=== PATIENT | female | born 1935 | race Caucasian/White ===

== ENCOUNTER 2019-07-08 21:13 | Inpatient (IN) ==
[2019-07-08] MEDS ORDERED: ONDANSETRON INJ 2 MG/ML 2 ML VIAL IV PRN (23:47)
[2019-07-08] MEDS ORDERED: MoRPHine SULFATE 2 MG/ML CARP IV PRN (23:47)
[2019-07-08] MEDS ORDERED: ACETAMINOPHEN 325 MG TAB PO PRN (23:47)
[2019-07-08] MEDS ORDERED: ALBUTEROL HFA 8 GM INHALER INH PRN (23:47)
[2019-07-09] MEDS ORDERED: cefTRIAXone SODIUM 1,000 MG in DEXTROSE 5% 50 ML IV SCH
[2019-07-09] MEDS: SODIUM CHLORIDE 0.9% 1000ML 1,000 ML IV SCH ×2 (00:50→09:48)
--- NOTE | 2019-07-09 02:51 | History and Physical Report ---
DATE OF ADMISSION: 07/08/2019 CHIEF COMPLAINT: Abdominal pain. HISTORY OF PRESENT ILLNESS: This is an 83-year-old female with past medical history significant for COPD, hyperlipidemia, hypertension, history of colovesical fistula, history of swallowing disorder, constipation, GERD, hydronephrosis of left kidney, ureteral stricture left side, status post stents, amputated toes, pressure ulcer of sacral region stage I, low back pain, anemia, history of septic shock, psoriasis, history of cervical cancer, status post colostomy, history of hip fracture, history of nontraumatic retroperitoneal hematoma,Hxof PE not on anticoagulation? currently who went to [facility] with abdominal pain. She has chronic recurrent UTIs and chronic left hydronephrosis with left ureteral stricture and she is status post stent. She changes her stent every 3 months, last time it was changed in April. CAT scan from 11/2018 showed mild right hydroureteronephrosis without stones and stricture and urology is observing her about that.Today she went to [facility] with abdominal pain and nausea. UA was positive. No leukocytosis. Creatinine was 0.9, but because of abdominal tenderness, CAT scan of the abdomen and pelvis was done which showed multiple loops of dilated ileum, which measures up to 4.2 cm without evidence of interloop fluid. Findings may relate to developing ileus. Strictures from post-treatment changes are also possible. Closed loop obstruction is also possible, but does not appear to have characteristic imaging findings. Increased dilatation of the right renal collecting system from prior study with enhancement of the ureter. Findings may relate to infection with post treatment stricture and resulting hydronephrosis, normal position of left double-J ureteral stent. On the right side, there is narrowing of of distal ureter, findings may related to stricture. The patient's urologist at [place] who she sees regularly is out of station, so she was transferred here for further management. Her left kidney has atrophied. Currently, the patient says abdominal pain is better. Nausea has improved. Somewhat shaky. She lives with her daughter. She is ambulating with a walker. She says she has difficulty swallowing food and she has to eat a few bites at a time. Not great appetite. She has some headaches because of all these things happening today. Vision is not that great. No earaches, no runny nose. Throat is dry. She also does have cough from her sinuses and brings up some phlegm once in a while. She says she has arthritis. Denies any chest pain. No shortness of breath. Currently, no nausea, no diarrhea or constipation. She says her bowels moved but they move irregularly. She says she is status post colostomy and says she does not remember why she had colostomy; it was done a long time back. She says she is micturating fine. No burning micturition. No blood in the urine. No rash seen. Currently resting comfortably and hemodynamically stable. ALLERGIES: No known drug allergies. PAST MEDICAL HISTORY: As mentioned above. PAST SURGICAL HISTORY: Right knee arthroplasty, colonoscopy, multiple cystoscopies with stent placement, cystoscopy, EGDs, exploratory laparotomy, femur fracture repair, flexible sigmoidoscopy, removal of appendix, total abdominal hysterectomy with removal of tubes. MEDICATIONS: The patient is on albuterol 2 puffs every 4 hours p.r.n., Klor-Con 10 mEq p.o. daily, potassium and sodium phosphate 1 packet daily, Lasix 20 mg p.o. daily, Coreg 3.125 mg b.i.d., oxybutynin 10 mg daily, ferrous sulfate 5 mL b.i.d., melatonin 3 mg p.o. every night, alendronate 70 mg once weekly, Remeron 15 mg p.o. at bedtime, omeprazole 20 mg p.o. daily, simvastatin 20 mg p.o. at bedtime, Tylenol 650 mg p.o. q. 6 hours p.r.n., Colace 100 mg p.o. b.i.d., folic acid 1 mg p.o. daily. FAMILY HISTORY: Significant for sister who had cancer, mother had breast cancer, sister has throat cancer. SOCIAL HISTORY: Lives with her daughter. No smoking, no alcohol, no drug use. REVIEW OF SYSTEMS: As per HPI. Rest of the review of systems negative. PHYSICAL EXAMINATION: GENERAL: The patient is old and frail, not in acute distress. VITAL SIGNS: Temperature 36.7, pulse 77, respiratory rate 18, blood pressure 143/86, oxygen 97% on room air. HEENT: No pallor, no icterus. NECK: No JVD, no neck masses, no carotid bruit. CARDIOVASCULAR: S1, S2 heard, regular rate and rhythm, no murmur, no gallop. RESPIRATORY SYSTEM: Normal AP diameter. No accessory muscle use. No wheezing, no crackles. ABDOMEN: Soft, bowel sounds present. Mild diffuse tenderness. Mild guarding, mild distention. CENTRAL NERVOUS SYSTEM: Alert and oriented. Nonfocal. EXTREMITIES: Mild edema seen, no erythema. SKIN: Scabs seen in the left lower foot. LABORATORY DATA: From [facility], WBC 6.8, hemoglobin 11.6, hematocrit 38.1, platelets 245, BUN 16, creatinine 0.9, serum sodium 141, potassium 4.5, chloride 104, bicarbonate 26, glucose 114, calcium 9.1, alkaline phosphatase of 61, ALT 6, AST 18, total bilirubin 0.3, lipase 21. Urinalysis positive for nitrite and leukocyte esterase and bacteria.CT scan results as above. ASSESSMENT AND PLAN: This is an 83-year-old female who presents with abdominal pain and found to have urinary tract infection and also right ureteral stricture. 1. Abdominal pain. The patient has history of recurrent urinary tract infections and left ureteral stricture and left hydronephrosis, and she had stent placement and gets changed every 3 months. Last time it was done in April, now CAT scan is showing also right hydronephrosis with right distal ureteral stricture. In November, CAT scan also showed some right hydronephrosis, but stricture was not shown. Her left kidney is atrophied, but kidney function is okay at 0.9. The patient was transferred from [place] here because her regular urologist is out of town. We will keep her n.p.o., IV fluids, IV pain meds p.r.n., IV Zofran p.r.n. Consulted and notified urology to be seen in the am. 2. Urinary tract infection. The patient was placed on Rocephin in [facility]. Will continue Rocephin.Follow cultures. 3. Ileus on the CAT scan. We will keep her n.p.o. IV fluids, IV antiemetics, IV pain meds p.r.n. Follow KUB in the a.m. Consult general surgery in the a.m. History of colostomy. 4. History of deep venous thrombosis, pulmonary embolism, but no longer on anticoagulation. 5. history of nontraumatic retroperitoneal hematoma. 6. History of cervical cancer. 7. Pressure ulcer of sacral area, stage I. Consult wound care. 8. Gastroesophageal reflux disease, omeprazole. 9. Hypertension, Coreg.Will monitor 10. Chronic obstructive pulmonary disease, on home inhalers. 11. Deep venous thrombosis prophylaxis, sequential compression devices for now. 12. Disposition: Admit to medical floor. Expect to discharge home and follow with family doctor. PT and OT prior to discharge. Social Service to help with discharge planning. Level 1 full code as per my discussion with the patient. MTDD
[2019-07-09 05:49] LABS: Basophils # (auto) 0.03 K/uL (0-0.2); Basophils % (auto) 0.4 %; Eosinophils % (auto) 14.7 %; Hematocrit (blood only) 36.7 % (37-47); Hemoglobin 11.7 g/dL (12.0-16.0); Immature Granulocytes # (auto) 0.01 K/uL (0.00-0.02); Immature Granulocytes % (auto) 0.1 %; Lymphocytes % (auto) 23.5 %; Mean Corpuscular Hemoglobin 30.5 pg (25-34); Mean Corpuscular Hgb Conc 31.9 g/dL (32-36); Mean Corpuscular Volume 95.6 fL (80-100); Mean Platelet Volume 9.7 fL (7.4-10.4); Monocytes % (auto) 8.8 %; Neutrophils # (auto) 3.58 K/uL (1.4-6.5); Neutrophils % (auto) 52.5 %; Platelet Count 196 K/uL (130-400); RDW Coefficient of Variation 14.3 % (11.5-14.5); RDW Standard Deviation 49.6 fL (36.4-46.3); Red Blood Count 3.84 M/uL (4.2-5.4); White Blood Count 6.82 K/uL (4.8-10.8)
[2019-07-09 06:06] LABS: Alanine Aminotransferase 9 U/L (12-78); Albumin Level 2.4 gm/dl (3.4-5.0); Aspartate Aminotransferase 14 U/L (15-37); BUN Creatinine Ratio 15.3 (10-20); Bilirubin Direct < 0.1 mg/dl (0-0.2); Blood Urea Nitrogen 12 mg/dl (7-18); Calcium 8.2 mg/dl (8.5-10.1); Carbon Dioxide 27 mmol/L (21-32); Chloride 112 mmol/L (98-107); Creatinine Clr Calc Pharmacy 48.3 ml/min; Est GFR (African American) 83.3; Est GFR (Non-African American) 71.9; Glucose 80 mg/dl (70-99); Magnesium 1.8 mg/dl (1.8-2.4); Potassium 3.8 mmol/L (3.5-5.1); Sodium 141 mmol/L (136-145)
[2019-07-09 06:09] LABS: Alkaline Phosphatase 63 U/L (45-117); Bilirubin,Total 0.3 mg/dl (0.2-1); Partial Thromboplastin Ratio 0.9; Partial Thromboplastin Time 23.6 Seconds (21.0-31.0); Prothrombin Time 10.3 Seconds (9.0-12.0); Total Protein 6.3 gm/dl (6.4-8.2)
[2019-07-09] MEDS ORDERED: POTASSIUM CHLORIDE 10 MEQ TABCR PO SCH (09:00)
[2019-07-09] MEDS: DOCUSATE SODIUM 100 MG CAP PO SCH ×2 (09:48→20:53)
[2019-07-09] MEDS: carvediloL 3.125 MG TAB PO SCH ×2 (09:49→20:53)
[2019-07-09] MEDS: OXYBUTYNIN CHLORIDE XL 5 MG TABCR PO SCH (09:49)
[2019-07-09] MEDS: POT PHOSPHATE MONOBASIC W/ SOD TAB PO SCH (09:50)
[2019-07-09] MEDS: FOLIC ACID 1 MG TAB PO SCH (09:50)
[2019-07-09] MEDS: PANTOprazole 40 MG TAB PO SCH (09:51)
--- NOTE | 2019-07-09 10:18 | XRay Report ---
KUB CLINICAL HISTORY: Ileus. COMPARISON STUDY: CT of the abdomen and pelvis November 22, 2015. FINDINGS: A left ureteral stent is in place. A left pelvic calcification reflects a phlebolith. Bilat eral femoral internal fixations are noted. A left lower quadrant ostomy is noted. A few mildly dilate d gas-filled loops of small bowel are noted within the lower abdomen and pelvis. IMPRESSION: 1. A few loops of mildly dilated gas-filled small bowel within the lower abdomen and pelvis which may reflect an ileus or partial small bowel obstruction. 2. Left ureteral stent in place. No urinary calculi identified. ACT 112: Negative or not required by law. Electronically signed by: Trip Elliott M.D. 07/09/2019 10:17 AM
--- NOTE | 2019-07-09 10:35 | Surgery Consultation ---
Date of Consultation July 09, 2019 Assessment & Plan (1) Acute abdominal pain in right lower quadrant: pt is a 83 year-old female who was admitted to hospital for abdominal pain, with nausea, I got a call for consult ileus IMP: abdominal pain, ileus, I agree with conservative treatment, treat UTI, pt can have clear diet, will F/U Thanks, (2) Ileus: History of Present Illness Attending Physician: Wilton Humphrey MD CHIEF COMPLAINT: Abdominal pain. HISTORY OF PRESENT ILLNESS: This is an 83-year-old female with past medical history significant for COPD, hyperlipidemia, hypertension, history of colovesical fistula, history of swallowing disorder, constipation, GERD, hydronephrosis of left kidney, ureteral stricture left side, status post stents, amputated toes, pressure ulcer of sacral region stage I, low back pain, anemia, history of septic shock, psoriasis, history of cervical cancer, status post colostomy, history of hip fracture, history of nontraumatic retroperitoneal hematoma,Hxof PE not on anticoagulation? currently who went to [facility] with abdominal pain. She has chronic recurrent UTIs and chronic left hydronephrosis with left ureteral stricture and she is status post stent. She changes her stent every 3 months, last time it was changed in April. CAT scan from 11/2018 showed mild right hydroureteronephrosis without stones and stricture and urology is observing her about that.Today she went to [facility] with abdominal pain and nausea. UA was positive. No leukocytosis. Creatinine was 0.9, but because of abdominal tenderness, CAT scan of the abdomen and pelvis was done which showed multiple loops of dilated ileum, which measures up to 4.2 cm without evidence of interloop fluid. Findings may relate to developing ileus. Strictures from post-treatment changes are also possible. Closed loop obstruction is also possible, but does not appear to have characteristic imaging findings. Increased dilatation of the right renal collecting system from prior study with enhancement of the ureter. Findings may relate to infection with post treatment stricture and resulting hydronephrosis, normal position of left double-J ureteral stent. On the right side, there is narrowing of of distal ureter, findings may related to stricture. The patient's urologist at [place] who she sees regularly is out of station, so she was transferred here for further management. Her left kidney has atrophied. Currently, the patient says abdominal pain is better. Nausea has improved. Somewhat shaky. She lives with her daughter. She is ambulating with a walker. She says she has difficulty swallowing food and she has to eat a few bites at a time. Not great appetite. She has some headaches because of all these things happening today. Vision is not that great. No earaches, no runny nose. Throat is dry. She also does have cough from her sinuses and brings up some phlegm once in a while. She says she has arthritis. Denies any chest pain. No shortness of breath. Currently, no nausea, no diarrhea or constipation. She says her bowels moved but they move irregularly. She says she is status post colostomy and says she does not remember why she had colostomy; it was done a long time back. She says she is micturating fine. No burning micturition. No blood in the urine. No rash seen. Currently resting comfortably and hemodynamically stable. I ( Helio Bhagat MD )got a call for consult ileus, I reviewed pt's H/P , labs, KUB, pt is still have some mild abdominal pain, no nausea, no vomiting, no fever. some stool in colostomy bag. ALLERGIES: No known drug allergies. PAST MEDICAL HISTORY: As mentioned above. PAST SURGICAL HISTORY: Right knee arthroplasty, colonoscopy, multiple cystoscopies with stent placement, cystoscopy, EGDs, exploratory laparotomy, femur fracture repair, flexible sigmoidoscopy, removal of appendix, total abdominal hysterectomy with removal of tubes. MEDICATIONS: The patient is on albuterol 2 puffs every 4 hours p.r.n., Klor-Con 10 mEq p.o. daily, potassium and sodium phosphate 1 packet daily, Lasix 20 mg p.o. daily, Coreg 3.125 mg b.i.d., oxybutynin 10 mg daily, ferrous sulfate 5 mL b.i.d., melatonin 3 mg p.o. every night, alendronate 70 mg once weekly, Remeron 15 mg p.o. at bedtime, omeprazole 20 mg p.o. daily, simvastatin 20 mg p.o. at bedtime, Tylenol 650 mg p.o. q. 6 hours p.r.n., Colace 100 mg p.o. b.i.d., folic acid 1 mg p.o. daily. FAMILY HISTORY: Significant for sister who had cancer, mother had breast cancer, sister has throat cancer. SOCIAL HISTORY: Lives with her daughter. No smoking, no alcohol, no drug use. Allergies Allergy/AdvReac Type Severity Reaction Status Date / Time No Known Allergies Allergy Unverified 11/22/15 06:42 Home Medications Home Medications Medication Instructions Recorded Confirmed Type ALENDRONATE SODIUM (FOSAMAX) 1 tab PO WK 28 Days #4 tab 11/27/15 Rx CARVEDILOL (COREG) 1 tab PO BID 30 Days #60 tab 11/27/15 Rx Folic Acid 1 mg PO DAILY #30 11/27/15 Rx MIRTAZAPINE (REMERON) 1 tab PO HS 30 Days #30 tab 11/27/15 Rx OXYBUTYNIN CHLORIDE (OXYBUTYNIN 2 tab PO DAILY 30 Days #60 tab 11/27/15 Rx CHLORIDE ER) Simvastatin 20 mg PO HS #30 11/27/15 Rx Triamcinolone Acet 0.1% 1 applic EXT BID #1 11/27/15 Rx (Aristocort 0.1%) Colace 100 mg PO BID 07/08/19 07/08/19 History Lasix 20 mg PO DAILY 07/08/19 07/08/19 History albuterol sulfate 2 puff INHALATION Q4H PRN 07/08/19 07/08/19 History ferrous sulfate 5 ml PO BID 07/08/19 07/08/19 History melatonin 3 mg PO HS 07/08/19 07/08/19 History omeprazole 20 mg PO DAILY 07/08/19 07/08/19 History potassium chloride 10 meq PO DAILY 07/08/19 07/08/19 History potassium, sodium phosphates 1 packet PO DAILY 07/08/19 07/08/19 History [Phos-NaK] Patient History Social History Preferred Language: [place] Communication Ability: Effective Mold Breaker Required: No Beliefs That Will Affect Care: None Current Living Situation: Family Current Living Situation Comment: dtr Feels Safe at Home: Yes Safety Concerns: Feels Safe At This Time Smoking Status: Never smoker Hx Alcohol Use: No Hx Substance Use: No Review of Systems Review of Systems: All systems reviewed & are unremarkable except as noted in HPI & below HTN, cervical cancer, COPD, DVT, Physical Exam Constitutional: WD/WN, vitals as above well developed and well nourished ENMT: external ear and nose normal, oropharynx normal Neck: trachea midline, no thyromegaly Respiratory: normal respiratory effort, lungs clear to auscultation normal respiratory effort Cardiovascular: RRR, no murmur, no edema Rate/Rhythm: regular rate and regular rhythm Heart Sounds: normal S1 and normal S2 Gastrointestinal (Abdomen): normal bowel sounds, soft, nontender, no hepatosplenomegaly middle line scar, colostomy is working, mild tenderness at lower abdomen, no distend, no rebound pain, BS + Musculoskeletal: no cyanosis or clubbing, extremities motor strength 5/5 Skin: no rashes, warm and dry Neurologic: patellar DTR's 2+ bilat, sensation intact Psychiatric: A+Ox3, euthymic affect Orientation: oriented x 3 Results & Data Vital Signs (Past 12 Hours) Vital Signs Temp Pulse Resp BP BP Pulse Ox 07/09/19 07:23 37.2 C 68 16 134/60 96 07/09/19 06:58 37.2 C 68 17 145/68 H 96 07/08/19 23:02 36.7 C 77 18 143/86 H 97 Laboratory Results Abnormal lab results 07/09/19 07/09/19 Range/Units 05:39 05:39 RBC 3.84 L (4.2-5.4) M/uL Hgb 11.7 L (12.0-16.0) g/dL Hct 36.7 L (37-47) % MCHC 31.9 L (32-36) g/dL RDW Std Deviation 49.6 H (36.4-46.3) fL [place] # (Auto) 0.60 H (0.11-0.59) K/uL Eos # (Auto) 1.00 H (0-0.5) K/uL Chloride 112 H (98-107) mmol/L Anion Gap 2.0 L (3-11) Calcium 8.2 L (8.5-10.1) mg/dl AST 14 L (15-37) U/L ALT 9 L (12-78) U/L Total Protein 6.3 L (6.4-8.2) gm/dl Albumin 2.4 L (3.4-5.0) gm/dl Diagnostic Findings KUB CLINICAL HISTORY: Ileus. COMPARISON STUDY: CT of the abdomen and pelvis November 22, 2015. FINDINGS: A left ureteral stent is in place. A left pelvic calcification reflects a phlebolith. Bilateral femoral internal fixations are noted. A left lower quadrant ostomy is noted. A few mildly dilated gas-filled loops of small bowel are noted within the lower abdomen and pelvis. IMPRESSION: 1. A few loops of mildly dilated gas-filled small bowel within the lower abdomen and pelvis which may reflect an ileus or partial small bowel obstruction. 2. Left ureteral stent in place. No urinary calculi identified.
[2019-07-09] MEDS ORDERED: BACITRACIN OINT 15 GM TUBE EXT ONE (10:37)
--- NOTE | 2019-07-09 11:02 | Urology Consultation ---
Date of Consultation July 09, 2019 Assessment & Plan (1) Hydronephrosis: Assessment Patient with left ureteral stent possible right hydronephrosis per prior note. Also according to the note that she has had some hydronephrosis on the right before which the urologist in [place] was watching Since the patient is afebrile not experiencing any flank discomfort and has a normal creatinine I do not think any emergent intervention is needed today I will try to have the nurses get the images from [facility] pushed to [facility] system for review If she develops a fever or chills she may need a stent on the right-hand side or emergently. If there seems to be a significant change on her CT scans may need a right-sided stent placement in the future History of Present Illness Attending Physician: Wilton Humphrey MD History of Present Illness Patient is an 83-year-old white female who is followed by the urologist in [place]. She went into the [facility] with abdominal pain. CT scan was done which showed a left ureteral stent in place. She also had some hydronephrosis on the right side per the chart I do not have the actual CT scans from [place]. Patient denies any flank pain. She has been afebrile her vital signs have been stable. According to the admitting hospitalist note patient also had what appeared to be some dilated small bowel which may have been contributing to her abdominal pain Allergies Allergy/AdvReac Type Severity Reaction Status Date / Time No Known Allergies Allergy Unverified 11/22/15 06:42 Home Medications Home Medications Medication Instructions Recorded Confirmed Type ALENDRONATE SODIUM (FOSAMAX) 1 tab PO WK 28 Days #4 tab 11/27/15 Rx CARVEDILOL (COREG) 1 tab PO BID 30 Days #60 tab 11/27/15 Rx Folic Acid 1 mg PO DAILY #30 11/27/15 Rx MIRTAZAPINE (REMERON) 1 tab PO HS 30 Days #30 tab 11/27/15 Rx OXYBUTYNIN CHLORIDE (OXYBUTYNIN 2 tab PO DAILY 30 Days #60 tab 11/27/15 Rx CHLORIDE ER) Simvastatin 20 mg PO HS #30 11/27/15 Rx Triamcinolone Acet 0.1% 1 applic EXT BID #1 11/27/15 Rx (Aristocort 0.1%) Colace 100 mg PO BID 07/08/19 07/08/19 History Lasix 20 mg PO DAILY 07/08/19 07/08/19 History albuterol sulfate 2 puff INHALATION Q4H PRN 07/08/19 07/08/19 History ferrous sulfate 5 ml PO BID 07/08/19 07/08/19 History melatonin 3 mg PO HS 07/08/19 07/08/19 History omeprazole 20 mg PO DAILY 07/08/19 07/08/19 History potassium chloride 10 meq PO DAILY 07/08/19 07/08/19 History potassium, sodium phosphates 1 packet PO DAILY 07/08/19 07/08/19 History [Phos-NaK] Patient History Social History Preferred Language: [place] Communication Ability: Effective Stubber Required: No Beliefs That Will Affect Care: None Current Living Situation: Family Current Living Situation Comment: dtr Feels Safe at Home: Yes Safety Concerns: Feels Safe At This Time Smoking Status: Never smoker Hx Alcohol Use: No Hx Substance Use: No Physical Exam Physical Exam: Constitutional Well-developed well-nourished In no acute distress, Healthy appearing Neuro/psych Alert and oriented x3 Normal mood Normal affect Skin Normal color Normal turgor No rashes Warm and Dry Neck Normal visual inspection Pulmonary Normal rhythm and effort No respiratory distress No audible wheezes Able to speak in complete sentences Cardiac Bilateral lower extremity peripheral edema Results & Data Vital Signs (Past 12 Hours) Vital Signs Temp Pulse Resp BP BP Pulse Ox 07/09/19 07:23 37.2 C 68 16 134/60 96 07/09/19 06:58 37.2 C 68 17 145/68 H 96 07/08/19 23:02 36.7 C 77 18 143/86 H 97 Laboratory Results Laboratory Results - last 24 hr 07/09/19 07/09/19 07/09/19 05:39 05:39 05:39 WBC 6.82 RBC 3.84 L Hgb 11.7 L Hct 36.7 L MCV 95.6 MCH 30.5 MCHC 31.9 L RDW Std Deviation 49.6 H RDW Coeff of [place] 14.3 Plt Count 196 MPV 9.7 Immature Gran % (Auto) 0.1 Neut % (Auto) 52.5 Lymph % (Auto) 23.5 [place] % (Auto) 8.8 Eos % (Auto) 14.7 Baso % (Auto) 0.4 Immature Gran # (Auto) 0.01 Neut # (Auto) 3.58 Lymph # (Auto) 1.60 [place] # (Auto) 0.60 H Eos # (Auto) 1.00 H Baso # (Auto) 0.03 PT 10.3 INR 1.0 APTT 23.6 PTT Ratio 0.9 Sodium 141 Potassium 3.8 Chloride 112 H Carbon Dioxide 27 Anion Gap 2.0 L BUN 12 Creatinine 0.77 Est Cr Clr Drug Dosing 48.3 Est GFR ( Amer) 83.3 Est GFR (Non-Af Amer) 71.9 BUN/Creatinine Ratio 15.3 Glucose 80 Calcium 8.2 L Magnesium 1.8 Total Bilirubin 0.3 Direct Bilirubin < 0.1 AST 14 L ALT 9 L Alkaline Phosphatase 63 Total Protein 6.3 L Albumin 2.4 L PG Care Time/CCT Total # of Minutes Spent Total Time Spent with Patient: Total time spent is greater than 50% in coordination of care (as documented) at patient's floor/unit and/or counseling patient:
--- NOTE | 2019-07-09 12:58 | Hospitalist Progress Note ---
Date of Service July 09, 2019 Assessment & Plan (1) Acute abdominal pain in right lower quadrant: -83-year-old female with past medical history significant for COPD, hyperlipidemia, hypertension, history of colovesical fistula, history of swallowing disorder, constipation, GERD, hydronephrosis of left kidney, ureteral stricture left side, status post stents, amputated toes, pressure ulcer of sacral region stage I, low back pain, anemia, history of septic shock, psoriasis, history of cervical cancer, status post colostomy, history of hip fracture, history of nontraumatic retroperitoneal hematoma,Hxof PE not on anticoagulation? currently who went to [facility] with abdominal pain on 07/08/19 -patient was transferred to [facility] for urology evaluation Ileus -ileus as per CT scan from [facility] evaluation -no acute surgical intervention as per general surgery service at [facility] -minimize narcotic pain medications; acetaminophen prn for pain for now -hold iron supplements. start bowel regimen of senna, Miralax, give Milk of magnesia x 1 history of cervical cancer; history of colovesical fistula; status post colostomy Presence of Ostomy bag -General surgery Dr. Bhagat advised medical doctor to order bacitracin topically to be given to the skin rash below the ostomy bag (2) Hydronephrosis: suspected right ureteral stricture and right hydronephrosis -chronic left hydronephrosis with left ureteral stricture and she is status post stent; as per history the stent is changed every and last time it was changed in April 2019. in addition, patient also had mild right hydroureteronephrosis without stones and stricture from November 2018 CT scan as per history -CT abdomen from [place] on 07/08/19 presentation was reported to show "multiple loops of dilated ileum, which measures up to 4.2 cm without evidence of interloop fluid. Findings may relate to developing ileus. Strictures from post-treatment changes are also possible. Closed loop obstruction is also possible, but does not appear to have characteristic imaging findings. Increased dilatation of the right renal collecting system from prior study with enhancement of the ureter. Findings may relate to infection with post treatment stricture and resulting hydronephrosis, normal position of left double-J ureteral stent. On the right side, there is narrowing of of distal ureter, findings may related to stricture. " -primarily of concern for further right sided ureteral stricture, and because patient's urologist was out of town, patient was transferred from [facility] to [facility] for further urological evaluation -07/09/19 KUB: Left ureteral stent in place. No urinary calculi identified -continue home dose oxybutynin -no acute surgical interventions at this time as per [facility] urology evaluation (3) UTI (urinary tract infection): -history of recurrent urinary tract infections -was started on was placed on ceftriaxone in [facility]. -continue ceftriaxone -send urine analysis on this hospital stay Hypertension -continue carvedilol Gastroesophageal reflux disease -PPI DVT prophylaxis: SCDs PT/OT evaluations Full Code Subjective Patient seen and examined at bedside. does not currently appear to be in acute pain. no chest pain. breathing on room air. no back pain. no flank pain. patient did report that when she had pain it was anterior lower abdomen. no acute pain right now. Review of Systems Review of Systems: All systems reviewed & are unremarkable except as noted in HPI & below Physical Exam Constitutional: comfortable Eyes: PERRL, conjunctivae normal, anicteric sclerae EOM intact bilaterally ENMT: external ear and nose normal, oropharynx normal Neck: normal visual inspection Respiratory: normal respiratory effort, lungs clear to auscultation Cardiovascular: Rate/Rhythm: regular rate Gastrointestinal (Abdomen): abdomen soft, there is rash below ostomy bag Neurologic: PERRL, EOMI, accommodation nl, no face palsy, no dysarthria Psychiatric: A+Ox3, euthymic affect Results & Data Vital Signs (Past 12 Hours) Vital Signs Temp Pulse Resp BP Pulse Ox 07/09/19 07:23 37.2 C 68 16 134/60 96 07/09/19 06:58 37.2 C 68 17 145/68 H 96
[2019-07-09] MEDS ORDERED: MAGNESIUM HYDROXIDE SUSP 30 ML UDC PO ONE (13:11)
[2019-07-09] MEDS: SENNA 8.6 MG TAB PO SCH (13:43)
[2019-07-09] MEDS: POLYETHYLENE (MIRALAX) 17 GM PACK PO SCH ×2 (13:43→20:50)
[2019-07-09] MEDS: cefTRIAXone SODIUM 1,000 MG in DEXTROSE 5% 50 ML IV SCH (20:42)
[2019-07-09] MEDS: SIMVASTATIN 20 MG TAB PO SCH (20:53)
[2019-07-09] MEDS: MIRTAZAPINE TAB 15 MG TAB PO SCH (20:53)
[2019-07-10] MEDS: carvediloL 3.125 MG TAB PO SCH ×2 (09:05→21:05)
[2019-07-10] MEDS: DOCUSATE SODIUM 100 MG CAP PO SCH ×2 (09:05→20:58)
[2019-07-10] MEDS: PANTOprazole 40 MG TAB PO SCH (09:05)
[2019-07-10] MEDS: FOLIC ACID 1 MG TAB PO SCH (09:05)
[2019-07-10] MEDS: OXYBUTYNIN CHLORIDE XL 5 MG TABCR PO SCH (09:05)
[2019-07-10] MEDS: POT PHOSPHATE MONOBASIC W/ SOD TAB PO SCH (09:06)
[2019-07-10] MEDS: POLYETHYLENE (MIRALAX) 17 GM PACK PO SCH ×2 (09:06→20:59)
[2019-07-10] MEDS: SENNA 8.6 MG TAB PO SCH (09:06)
[2019-07-10] MEDS: BACITRACIN OINT 15 GM TUBE EXT SCH (09:07)
[2019-07-10 09:21] LABS: BUN Creatinine Ratio 10.7 (10-20); Calcium 8.8 mg/dl (8.5-10.1); Creatinine Clr Calc Pharmacy 53.8 ml/min; Est GFR (Non-African American) 81.1
--- NOTE | 2019-07-10 09:46 | Urology Progress Note ---
Date of Service July 10, 2019 Assessment & Plan (1) Hydronephrosis: 83 yo F with left ureteral stent, right hydronephrosis, suspected right ureteral stricture and multiple comorbidities. According to admitting notes, there was right hydronephrosis on previous CT scan in November 2018. Previous imaging not available for review and comparison at this time. Most recent CT reviewed with Dr. Diop, moderate right hydronephrosis with dilated ureter, but no obvious obstruction. Pt remains afebrile, VSS. Normal creatinine. No flank discomfort. No acute intervention is needed at this time. If pt continues to be stable from perspective during stay, recommend follow-up outpatient with her urologist in [place] for monitoring and possible intervention. Pt does not wish to proceed with any surgical intervention at this time. Will try to get previous CT images pushed from [facility] to [facility] for review. Will continue to monitor peripherally. Subjective 83 yo F with left ureteral stent, right hydronephrosis, possible right ureteral stricture and multiple comorbidities. Chart Review: Afebrile, VSS Cr - 0.77 WBC - wnl UC&S moderate contamination Blood cultures - pending, prelim no growth On IV Ceftriaxone Sitting up in bed, alert and oriented, reading newspaper. Abdominal pain improved. Tolerating clear liquids. Denies flank pain. Female external catheter in place, draining yellow urine. Review of Systems Review of Systems: All systems reviewed & are unremarkable except as noted in HPI & below Physical Exam Physical Exam: NAD AOx3 Normal respiratory effort Abd soft, nondistended; ostomy LLQ intact External female catheter draining yellow urine Results & Data Vital Signs (Past 12 Hours) Vital Signs Temp Pulse Resp BP BP Pulse Ox 07/10/19 07:11 37.1 C 67 16 103/61 94 07/09/19 23:17 37.2 C 72 16 123/69 93 PG Care Time/CCT Total # of Minutes Spent Total Time Spent with Patient: Total time spent is greater than 50% in coordination of care (as documented) at patient's floor/unit and/or counseling patient:
[2019-07-10] MEDS ORDERED: ACETAMINOPHEN 325 MG TAB PO PRN (10:42)
[2019-07-10 10:58] LABS: Magnesium 2.1 mg/dl (1.8-2.4); Phosphorus 2.6 mg/dl (2.5-4.9)
--- NOTE | 2019-07-10 11:09 | Surgery Progress Note ---
Date of Service July 10, 2019 Assessment & Plan (1) Acute abdominal pain in right lower quadrant: pt is a 83 year-old female who was admitted to hospital for right lower abdominal pain, with nausea, outside CT scan showing possible right hydronephrosis and ureteral stricture. Has hx of chronic left sided hydronephrosis and has left ureteral stent present. CT with questionable ileus. KUB yesterday showing mildly dilated small bowel. +return of bowel function via ostomy Plan: no surgical indication at this time Okay to advance diet to full liquids , take slowly continue medical management Dr. Bhagat has seen patient, agrees with above Subjective some right lower abdominal pain, comes and goes tolerated liquids this morning no nausea or vomiting had to empty colostomy bag this morning Physical Exam Constitutional: WD/WN, vitals as above no acute distress Gastrointestinal (Abdomen): Inspection/Auscultation: abdomen normal to inspection; abdomen not distended Percussion/Palpation: + abdomen tender (mild in RLQ) and abdomen soft; no guarding and abdomen not rigid LLQ colostomy bag with stool present Skin: no rashes, warm and dry Psychiatric: Orientation: alert Results & Data Vital Signs (Past 12 Hours) Vital Signs Temp Pulse Resp BP BP Pulse Ox 07/10/19 07:11 37.1 C 67 16 103/61 94 07/09/19 23:17 37.2 C 72 16 123/69 93 Laboratory Results 07/10/19 Range/Units 08:46 Sodium 142 (136-145) mmol/L Potassium 4.0 (3.5-5.1) mmol/L Chloride 111 H (98-107) mmol/L Carbon Dioxide 27 (21-32) mmol/L Anion Gap 3.0 (3-11) BUN 7 D (7-18) mg/dl Creatinine 0.69 (0.6-1.2) mg/dl Est Cr Clr Drug Dosing 53.8 ml/min Est GFR ( Amer) 94.0 Est GFR (Non-Af Amer) 81.1 BUN/Creatinine Ratio 10.7 (10-20) Glucose 91 (70-99) mg/dl Calcium 8.8 (8.5-10.1) mg/dl Phosphorus 2.6 (2.5-4.9) mg/dl Magnesium 2.1 (1.8-2.4) mg/dl
--- NOTE | 2019-07-10 17:04 | Hospitalist Progress Note ---
Date of Service July 10, 2019 Assessment & Plan (1) Acute abdominal pain in right lower quadrant: -83-year-old female with past medical history significant for COPD, hyperlipidemia, hypertension, history of colovesical fistula, history of swallowing disorder, constipation, GERD, hydronephrosis of left kidney, ureteral stricture left side, status post stents, amputated toes, pressure ulcer of sacral region stage I, low back pain, anemia, history of septic shock, psoriasis, history of cervical cancer, status post colostomy, history of hip fracture, history of nontraumatic retroperitoneal hematoma,Hxof PE not on anticoagulation? currently who went to [facility] with abdominal pain on 07/08/19 -patient was transferred to [facility] for urology evaluation Ileus -ileus as per CT scan from [facility] evaluation -no acute surgical intervention as per general surgery service at [facility] -minimize narcotic pain medications; acetaminophen prn for pain for now -hold iron supplements. bowel regimen of senna, Miralax -patient able to tolerate liquid diet to full liquid diet. try to advance to solid diet history of cervical cancer; history of colovesical fistula; status post colostomy Presence of Ostomy bag -General surgery Dr. Bhagat advised medical doctor to order bacitracin topically to be given to the skin rash below the ostomy bag and this was given on 07/09/19 -no acute surgical interventions at this time (2) Hydronephrosis: suspected right ureteral stricture and right hydronephrosis -chronic left hydronephrosis with left ureteral stricture and she is status post stent; as per history the stent is changed every and last time it was changed in April 2019. in addition, patient also had mild right hydroureteronephrosis without stones and stricture from November 2018 CT scan as per history -CT abdomen from [place] on 07/08/19 presentation was reported to show "multiple loops of dilated ileum, which measures up to 4.2 cm without evidence of interloop fluid. Findings may relate to developing ileus. Strictures from post-treatment changes are also possible. Closed loop obstruction is also possible, but does not appear to have characteristic imaging findings. Increased dilatation of the right renal collecting system from prior study with enhancement of the ureter. Findings may relate to infection with post treatment stricture and resulting hydronephrosis, normal position of left double-J ureteral stent. On the right side, there is narrowing of of distal ureter, findings may related to stricture. " -primarily of concern for further right sided ureteral stricture, and because patient's urologist was out of town, patient was transferred from [facility] to [facility] for further urological evaluation -07/09/19 KUB: Left ureteral stent in place. No urinary calculi identified -continue home dose oxybutynin -no acute surgical interventions at this time as per [facility] urology evaluation (3) UTI (urinary tract infection): -history of recurrent urinary tract infections -was given ceftriaxone in [facility]. -continue ceftriaxone until 07/11/19 -urine culture from this hospital stay: More than three types of organisms present, all moderate counts mixed probable skin anthony. No further identifications or sensitivities to follow.send urine analysis on this hospital stay Hypertension -continue carvedilol Gastroesophageal reflux disease -PPI Ambulatory dysfunction -patient has known mobility issues with walking as per patient and her family members -formally assessed by physical and occupational therapist - suggest of benefit from SNF placement after hospital stay -Medical doctor spoke with patient's daughter Reanna ([phone]; [phone]) and she appears to prefer that patient return home with home physical therapy services. will update case management DVT prophylaxis: SCDs Full Code Subjective Patient does not appear to be in distress. her initial abdominal pain when seen in [facility] does not appear to be severe in intensity. patient able to tolerate a liquid to full liquid diet. no vomiting. no chest pain. no shortness of breath. no reported headache or dizziness. Review of Systems Review of Systems: All systems reviewed & are unremarkable except as noted in HPI & below Physical Exam Constitutional: comfortable Eyes: PERRL, conjunctivae normal, anicteric sclerae EOM intact bilaterally ENMT: external ear and nose normal, oropharynx normal Neck: normal visual inspection Respiratory: normal respiratory effort, lungs clear to auscultation Cardiovascular: Rate/Rhythm: regular rate Gastrointestinal (Abdomen): ostomy bag Neurologic: PERRL, EOMI, accommodation nl, no face palsy, no dysarthria Psychiatric: A+Ox3, euthymic affect Results & Data Vital Signs (Past 12 Hours) Vital Signs Temp Pulse Resp BP Pulse Ox 07/10/19 16:11 118/70 07/10/19 14:59 36.5 C 73 17 90/44 L 95 07/10/19 07:11 37.1 C 67 16 103/61 94
[2019-07-10] MEDS: cefTRIAXone SODIUM 1,000 MG in DEXTROSE 5% 50 ML IV SCH (20:57)
[2019-07-10] MEDS: MIRTAZAPINE TAB 15 MG TAB PO SCH (20:58)
[2019-07-10] MEDS: SIMVASTATIN 20 MG TAB PO SCH (20:59)
--- NOTE | 2019-07-11 08:46 | Surgery Progress Note ---
Date of Service July 11, 2019 Assessment & Plan (1) Ileus: Ileus seems to be resolved Good output from her ostomy Tolerating clear liquid diet Can advance as tolerated Tenderness most likely due to issue No indication for surgical intervention at this time Subjective More awake and alert and smiling this morning Denies nausea and vomiting Tolerating clear liquids Output from ostomy has begun with 850 cc recorded for last shift Still with some mild abdominal discomfort towards the left most likely related to her issues Physical Exam Gastrointestinal (Abdomen): Inspection/Auscultation: normal bowel sounds; abdomen not distended Percussion/Palpation: + abdomen tender (left side) and abdomen soft Results & Data Vital Signs (Past 12 Hours) Vital Signs Temp Pulse Resp BP BP Pulse Ox 07/11/19 07:00 37.0 C 72 16 128/76 95 07/10/19 23:13 36.9 C 86 16 119/65 95 07/10/19 21:04 85 114/67 94 Laboratory Results 07/10/19 Range/Units 08:46 Sodium 142 (136-145) mmol/L Potassium 4.0 (3.5-5.1) mmol/L Chloride 111 H (98-107) mmol/L Carbon Dioxide 27 (21-32) mmol/L Anion Gap 3.0 (3-11) BUN 7 D (7-18) mg/dl Creatinine 0.69 (0.6-1.2) mg/dl Est Cr Clr Drug Dosing 53.8 ml/min Est GFR ( Amer) 94.0 Est GFR (Non-Af Amer) 81.1 BUN/Creatinine Ratio 10.7 (10-20) Glucose 91 (70-99) mg/dl Calcium 8.8 (8.5-10.1) mg/dl Phosphorus 2.6 (2.5-4.9) mg/dl Magnesium 2.1 (1.8-2.4) mg/dl
[2019-07-11] MEDS: FOLIC ACID 1 MG TAB PO SCH (09:09)
[2019-07-11] MEDS: SENNA 8.6 MG TAB PO SCH (09:09)
[2019-07-11] MEDS: OXYBUTYNIN CHLORIDE XL 5 MG TABCR PO SCH (09:09)
[2019-07-11] MEDS: PANTOprazole 40 MG TAB PO SCH (09:09)
[2019-07-11] MEDS: POT PHOSPHATE MONOBASIC W/ SOD TAB PO SCH (09:10)
[2019-07-11] MEDS: carvediloL 3.125 MG TAB PO SCH (09:10)
[2019-07-11] MEDS: DOCUSATE SODIUM 100 MG CAP PO SCH (09:10)
[2019-07-11] MEDS: BACITRACIN OINT 15 GM TUBE EXT SCH (09:10)
[2019-07-11] MEDS: POLYETHYLENE (MIRALAX) 17 GM PACK PO SCH (09:10)
--- NOTE | 2019-07-11 10:23 | Urology Progress Note ---
Date of Service July 11, 2019 Assessment & Plan (1) Hydronephrosis: 83 yo F with left ureteral stent, right hydronephrosis, suspected right ureteral stricture and multiple comorbidities. Care plan discussed with Dr. Diop. Hydronephrosis is likely multifactorial. Recommend place Alvarez catheter to evaluate if overflow incontinence and reflux is contributing to pain. Right lower quadrant pain is not definitively renal colic, unsure if stent placement will improve symptoms. Renal function currently stable. Patient has ileus, currently advanced to regular diet, tolerating. At this point, stent placement would be elective and unsure of benefit at this time. Risks of anesthesia may worsen known ileus. Please consult our service urgently if patient develops fever >101F, intractable pain or nausea, as this may necessitate urgent surgical intervention. Thank you for the consultation and we will continue to monitor closely with primary service. Update: per nursing, patient refusing Alvarez catheter. Placed order for bladder scan qshift x 24 hours. Subjective 83 yo F with left ureteral stent, right hydronephrosis, suspected right ureteral stricture and multiple comorbidities. Patient sitting up in bed, awake and alert today. Tolerating regular diet. Denies N/V. Ostomy with good output. Complains of right lower quadrant pain on and off, typically with movement. States "something is in there, stuck." She states she is feeling frustrated with hospitalization. Female external catheter draining yellow urine. Review of Systems Review of Systems: All systems reviewed & are unremarkable except as noted in HPI & below Physical Exam Physical Exam: NAD Awake and alert Respiratory effort normal Abd soft, nondistended, minimal tenderness to palpation at RLQ, no rebound or guarding. Ostomy intact. No CVA tenderness. Female external catheter draining yellow urine. No pedal edema. Results & Data Vital Signs (Past 12 Hours) Vital Signs Temp Pulse Resp BP BP Pulse Ox 07/11/19 07:00 37.0 C 72 16 128/76 95 07/10/19 23:13 36.9 C 86 16 119/65 95 PG Care Time/CCT Total # of Minutes Spent Total Time Spent with Patient: Total time spent is greater than 50% in coordination of care (as documented) at patient's floor/unit and/or counseling patient:
--- NOTE | 2019-07-11 12:52 | Hospitalist Progress Note ---
Date of Service July 11, 2019 Assessment & Plan (1) Acute abdominal pain in right lower quadrant: generalized abdominal pain (Acute abdominal pain in right lower quadrant) -83-year-old female with past medical history significant for COPD, hyperlipidemia, hypertension, history of colovesical fistula, history of swallowing disorder, constipation, GERD, hydronephrosis of left kidney, ureteral stricture left side, status post stents, amputated toes, pressure ulcer of sacral region stage I, low back pain, anemia, history of septic shock, psoriasis, history of cervical cancer, status post colostomy, history of hip fracture, history of nontraumatic retroperitoneal hematoma,Hxof PE not on anticoagulation? currently who went to [facility] with abdominal pain on 07/08/19 -patient was transferred to [facility] for urology evaluation Ileus -ileus as per CT scan from [facility] evaluation -no acute surgical intervention as per general surgery service at [facility] -patient able to tolerate liquid diet to full liquid diet and then solid diet -patient making ostomy output -continue senna and Miralax (Polyethylene glycol) as outpatient. Patient should stop any constipating medications such as iron supplements for now -discharge medication sent electronically to [facility] pharmacy [address] [place] [id number] altered bowel elimination due to intestinal ostomy (history of cervical cancer; history of colovesical fistula; status post colostomy, Presence of Ostomy bag) urinary tract infection, suspected right ureteral stricture and right hydronephrosis -General surgery Dr. Bhagat advised medical doctor to order bacitracin topically to be given to the skin rash below the ostomy bag and this was given on 07/09/19 -no acute surgical interventions at this time (2) Hydronephrosis: suspected right ureteral stricture and right hydronephrosis -chronic left hydronephrosis with left ureteral stricture and she is status post stent; as per history the stent is changed every and last time it was changed in April 2019. in addition, patient also had mild right hydroureteronephrosis without stones and stricture from November 2018 CT scan as per history -CT abdomen from [place] on 07/08/19 presentation was reported to show "multiple loops of dilated ileum, which measures up to 4.2 cm without evidence of interloop fluid. Findings may relate to developing ileus. Strictures from post-treatment changes are also possible. Closed loop obstruction is also possible, but does not appear to have characteristic imaging findings. Increased dilatation of the right renal collecting system from prior study with enhancement of the ureter. Findings may relate to infection with post treatment stricture and resulting hydronephrosis, normal position of left double-J ureteral stent. On the right side, there is narrowing of of distal ureter, findings may related to stricture. " -primarily of concern for further right sided ureteral stricture, and because patient's urologist was out of town, patient was transferred from [facility] to [facility] for further urological evaluation -07/09/19 KUB: Left ureteral stent in place. No urinary calculi identified -continue home dose oxybutynin -[facility] urology does not assess that any further ureteral stent placement will help with pain as they do not suspect pain is from renal colic. [facility] urology recommended Wang catheter to evaluate if overflow incontinence and reflux is contributing to pain but patient is not retaining urine on bladder scan and patient declined wang -Patient should follow up with outpatient urology: 08/04/2019 3:00 PM Provider Irvin Butterfield PA-C Department Urology [facility] -Patient should follow up with primary medical doctor (3) UTI (urinary tract infection): -history of recurrent urinary tract infections -urine culture from this hospital stay: More than three types of organisms present, all moderate counts mixed probable skin anthony. No further identifications or sensitivities to follow.send urine analysis on this hospital stay. Initially started on ceftriaxone antibiotic at [facility] on . Patient completed last day of daily ceftriaxone antibiotic on 07/11/19 Hypertension -continue carvedilol Gastroesophageal reflux disease -PPI Ambulatory dysfunction -patient has known mobility issues with walking as per patient and her family members -formally assessed by physical and occupational therapist - suggest of benefit from SNF placement after hospital stay -Medical doctor spoke with patient's daughter Reanna ([phone]; [phone]) and she appears to prefer that patient return home with home physical therapy services. -discharge on 07/11/19 to home with home health services Full Code Discharge Diagnosis: generalized abdominal pain (Acute abdominal pain in right lower quadrant), Ileus, altered bowel elimination due to intestinal ostomy (history of cervical cancer; history of colovesical fistula; status post colostomy, Presence of Ostomy bag) urinary tract infection, suspected right ureteral stricture and right hydronephrosis, Ambulatory dysfunction Subjective Patient still with some right sided abdominal discomfort. But continues to make ostomy output. bladder scan does not show acute urinary retention. no fevers. no vomiting. able to eat the solid food. no shortness of breath. no chets pain. no dizziness. no lightheadedness Review of Systems Review of Systems: All systems reviewed & are unremarkable except as noted in HPI & below Physical Exam Constitutional: comfortable Eyes: PERRL, conjunctivae normal, anicteric sclerae EOM intact bilaterally ENMT: external ear and nose normal, oropharynx normal Neck: normal visual inspection Respiratory: normal respiratory effort, lungs clear to auscultation Cardiovascular: Rate/Rhythm: regular rate Neurologic: PERRL, EOMI, accommodation nl, no face palsy, no dysarthria Psychiatric: A+Ox3, euthymic affect Results & Data Vital Signs (Past 12 Hours) Vital Signs Temp Pulse Resp BP Pulse Ox 07/11/19 07:00 37.0 C 72 16 128/76 95
--- NOTE | 2019-07-11 13:00 | Discharge Summary ---
Date of Service July 11, 2019 Admission HPI Per Admitting Provider CHIEF COMPLAINT: Abdominal pain. HISTORY OF PRESENT ILLNESS: This is an 83-year-old female with past medical history significant for COPD, hyperlipidemia, hypertension, history of colovesical fistula, history of swallowing disorder, constipation, GERD, hydronephrosis of left kidney, ureteral stricture left side, status post stents, amputated toes, pressure ulcer of sacral region stage I, low back pain, anemia, history of septic shock, psoriasis, history of cervical cancer, status post colostomy, history of hip fracture, history of nontraumatic retroperitoneal hematoma,Hxof PE not on anticoagulation? currently who went to [facility] with abdominal pain. She has chronic recurrent UTIs and chronic left hydronephrosis with left ureteral stricture and she is status post stent. She changes her stent every 3 months, last time it was changed in April. CAT scan from 11/2018 showed mild right hydroureteronephrosis without stones and stricture and urology is observing her about that.Today she went to [facility] with abdominal pain and nausea. UA was positive. No leukocytosis. Creatinine was 0.9, but because of abdominal tenderness, CAT scan of the abdomen and pelvis was done which showed multiple loops of dilated ileum, which measures up to 4.2 cm without evidence of interloop fluid. Findings may relate to developing ileus. Strictures from post-treatment changes are also possible. Closed loop obstruction is also possible, but does not appear to have characteristic imaging findings. Increased dilatation of the right renal collecting system from prior study with enhancement of the ureter. Findings may relate to infection with post treatment stricture and resulting hydronephrosis, normal position of left double-J ureteral stent. On the right side, there is narrowing of of distal ureter, findings may related to stricture. The patient's urologist at [place] who she sees regularly is out of station, so she was transferred here for further management. Her left kidney has atrophied. Currently, the patient says abdominal pain is better. Nausea has improved. Somewhat shaky. She lives with her daughter. She is ambulating with a walker. She says she has difficulty swallowing food and she has to eat a few bites at a time. Not great appetite. She has some headaches because of all these things happening today. Vision is not that great. No earaches, no runny nose. Throat is dry. She also does have cough from her sinuses and brings up some phlegm once in a while. She says she has arthritis. Denies any chest pain. No shortness of breath. Currently, no nausea, no diarrhea or constipation. She says her bowels moved but they move irregularly. She says she is status post colostomy and says she does not remember why she had colostomy; it was done a long time back. She says she is micturating fine. No burning micturition. No blood in the urine. No rash seen. Currently resting comfortably and hemodynamically stable. Admission Exam Per Admitting Provider GENERAL: The patient is old and frail, not in acute distress. VITAL SIGNS: Temperature 36.7, pulse 77, respiratory rate 18, blood pressure 143/86, oxygen 97% on room air. HEENT: No pallor, no icterus. NECK: No JVD, no neck masses, no carotid bruit. CARDIOVASCULAR: S1, S2 heard, regular rate and rhythm, no murmur, no gallop. RESPIRATORY SYSTEM: Normal AP diameter. No accessory muscle use. No wheezing, no crackles. ABDOMEN: Soft, bowel sounds present. Mild diffuse tenderness. Mild guarding, mild distention. CENTRAL NERVOUS SYSTEM: Alert and oriented. Nonfocal. EXTREMITIES: Mild edema seen, no erythema. SKIN: Scabs seen in the left lower foot. Principal Diagnosis generalized abdominal pain (Acute abdominal pain in right lower quadrant), Ileus, altered bowel elimination due to intestinal ostomy (history of cervical cancer; history of colovesical fistula; status post colostomy, Presence of Ostomy bag) urinary tract infection, suspected right ureteral stricture and right hydronephrosis, Ambulatory dysfunction Discharge Exam Constitutional comfortable Eyes PERRL, conjunctivae normal, anicteric sclerae EOM intact bilaterally ENMT external ear and nose normal, oropharynx normal Neck normal visual inspection Respiratory normal respiratory effort, lungs clear to auscultation Cardiovascular Rate/Rhythm: regular rate Gastrointestinal (Abdomen) abdomen nontender to plapation, ostomy bag making output Neurologic PERRL, EOMI, accommodation nl, no face palsy, no dysarthria Psychiatric A+Ox3, euthymic affect Discharge Data Allergies Allergy/AdvReac Type Severity Reaction Status Date / Time No Known Allergies Allergy Unverified 11/22/15 06:42 Consultations 07/08/19 23:47 Consult Case Management - Discharge Planning Routine 07/09/19 08:00 Consult General Surgery Routine Consult Urology Routine Hospital Course (1) Acute abdominal pain in right lower quadrant: generalized abdominal pain (Acute abdominal pain in right lower quadrant) -83-year-old female with past medical history significant for COPD, hyperlipidemia, hypertension, history of colovesical fistula, history of swallowing disorder, constipation, GERD, hydronephrosis of left kidney, ureteral stricture left side, status post stents, amputated toes, pressure ulcer of sacral region stage I, low back pain, anemia, history of septic shock, psoriasi s, history of cervical cancer, status post colostomy, history of hip fracture, history of nontraumatic retroperitoneal hematoma,Hxof PE not on anticoagulation? currently who went to [facility] with abdominal pain on 07/08/19 -patient was transferred to [facility] for urology evaluation Ileus -ileus as per CT scan from [facility] evaluation -no acute surgical intervention as per general surgery service at [facility] -patient able to tolerate liquid diet to full liquid diet and then solid diet -patient making ostomy output -continue senna and Miralax (Polyethylene glycol) as outpatient. Patient should stop any constipating medications such as iron supplements for now -discharge medication sent electronically to [facility] pharmacy [address] [place] [id number] altered bowel elimination due to intestinal ostomy (history of cervical cancer; history of colovesical fistula; status post colostomy, Presence of Ostomy bag) urinary tract infection, suspected right ureteral stricture and right hydronephrosis -General surgery Dr. Bhagat advised medical doctor to order bacitracin topically to be given to the skin rash below the ostomy bag and this was given on 07/09/19 -no acute surgical interventions at this time (2) Hydronephrosis: suspected right ureteral stricture and right hydronephrosis -chronic left hydronephrosis with left ureteral stricture and she is status post stent; as per history the stent is changed every and last time it was changed in April 2019. in addition, patient also had mild right hydroureteronephrosis without stones and stricture from November 2018 CT scan as per history -CT abdomen from [place] on 07/08/19 presentation was reported to show "multiple loops of dilated ileum, which measures up to 4.2 cm without evidence of interloop fluid. Findings may relate to developing ileus. Strictures from post-treatment changes are also possible. Closed loop obstruction is also possible, but does not appear to have characteristic imaging findings. Increased dilatation of the right renal collecting system from prior study with enhancement of the ureter. Findings may relate to infection with post treatment stricture and resulting hydronephrosis, normal position of left double-J ureteral stent. On the right side, there is narrowing of of distal ureter, findings may related to stricture. " -primarily of concern for further right sided ureteral stricture, and because patient's urologist was out of town, patient was transferred from [facility] to [facility] for further urological evaluation -07/09/19 KUB: Left ureteral stent in place. No urinary calculi identified -continue home dose oxybutynin -[facility] urology does not assess that any further ureteral stent placement will help with pain as they do not suspect pain is from renal colic. [facility] urology recommended Wang catheter to evaluate if overflow incontinence and reflux is contributing to pain but patient is not retaining urine on bladder scan and patient declined wang -Patient should follow up with outpatient urology: 08/04/2019 3:00 PM Provider Irvin Butterfield PA-C Department Urology [facility] -Patient should follow up with primary medical doctor (3) UTI (urinary tract infection): -history of recurrent urinary tract infections -urine culture from this hospital stay: More than three types of organisms present, all moderate counts mixed probable skin anthony. No further identifications or sensitivities to follow.send urine analysis on this hospital stay. Initially started on ceftriaxone antibiotic at [facility] on 07/08/19. Patient completed last day of daily ceftriaxone antibiotic on 07/11/19 Hypertension -continue carvedilol Gastroesophageal reflux disease -PPI Ambulatory dysfunction -patient has known mobility issues with walking as per patient and her family members -formally assessed by physical and occupational therapist - suggest of benefit from SNF placement after hospital stay -Medical doctor spoke with patient's daughter Reanna ([phone]; [phone] ) and she appears to prefer that patient return home with home physical therapy services. -discharge on 07/11/19 to home with home health services Full Code Discharge Diagnosis: generalized abdominal pain (Acute abdominal pain in right lower quadrant), Ileus, altered bowel elimination due to intestinal ostomy (history of cervical cancer; history of colovesical fistula; status post colostomy, Presence of Ostomy bag) urinary tract infection, suspected right ureteral stricture and right hydronephrosis, Ambulatory dysfunction Total Time Total Time Spent Total Time Spent (In Minutes): 40 minutes Total Time Includes: Examination of the Patient, Discharge Planning, Medication Reconciliation and Communication With Other Providers Discharge Plan Discharge Items Patient Disposition: Home - Home Health Services Reason For Visit: URETERAL STRICTURE,ILEUS Discharge Diagnosis: generalized abdominal pain (Acute abdominal pain in right lower quadrant), Ileus, altered bowel elimination due to intestinal ostomy (history of cervical cancer; history of colovesical fistula; status post colostomy, Presence of Ostomy bag) urinary tract infection, suspected right ureteral stricture and right hydronephrosis ([facility] urology does not assess that any further ureteral stent placement will help with pain as they do not suspect pain is from renal colic. [facility] urology recommended Wang catheter to evaluate if overflow incontinence and reflux is contributing to pain but patient is not retaining urine on bladder scan and patient declined wang), Ambulatory dysfunction Condition on Discharge: Good Activity: Resume your previous activity Non-emergency contact: Primary Care Provider and Urologist Call non-emergency contact if: you have any medication questions Follow-up/Referrals: David Anand [Primary Care Provider] - Diet: Carb Consistent or DM2 Addtl Attending Provider Instructions: ileus as per CT scan from [facility] evaluation -no acute surgical intervention as per general surgery service at [facility] -patient making ostomy output -continue senna and Miralax (Polyethylene glycol) as outpatient. Patient should stop any constipating medications such as iron supplements for now discharge medication sent electronically to [facility] pharmacy [facility], [place] [address] urine culture from this hospital stay: More than three types of organisms present, all moderate counts mixed probable skin anthony. No further identifications or sensitivities to follow.send urine analysis on this hospital stay. Initially started on ceftriaxone antibiotic at [facility] on 07/08/19. Patient completed last day of daily ceftriaxone antibiotic on 07/11/19 [facility] urology does not assess that any further ureteral stent placement will help with pain as they do not suspect pain is from renal colic. [facility] urology recommended Wang catheter to evaluate if overflow incontinence and reflux is contributing to pain but patient is not retaining urine on bladder scan and patient declined wang Patient should follow up with outpatient urology: 08/04/2019 3:00 PM Provider Irvin Butterfield PA-C Department Urology [facility] Patient should follow up with primary medical doctor Pending Studies at Discharge: No Stand-Alone Forms: My [facility], Smoking Cessation Medications and DC Order Prescriptions: New sennosides [Senokot] 8.6 mg Tablet 8.6 mg PO QAM 30 Days Qty: 30 RF: 0 polyethylene glycol 3350 [Miralax] 17 gram Powder In Packet 17 g PO DAILY PRN (Reason: Constipation) 30 Days Qty: 30 RF: 0 bacitracin 500 unit/gram Ointment 1 applic EXT DAILY 10 Days Qty: 0.5 RF: 0 Continued ALENDRONATE SODIUM (FOSAMAX) 70 MG tablet 1 tab PO WK 28 Days Qty: 4 RF: 3 CARVEDILOL (COREG) 3.125 MG tablet 1 tab PO BID 30 Days Qty: 60 RF: 3 Folic Acid 1 MG tablet 1 mg PO DAILY Qty: 30 RF: 0 MIRTAZAPINE (REMERON) 15 MG tablet 1 tab PO HS 30 Days Qty: 30 RF: 3 OXYBUTYNIN CHLORIDE (OXYBUTYNIN CHLORIDE ER) 5 MG tablet 2 tab PO DAILY 30 Days Qty: 60 RF: 5 Simvastatin 20 MG tablet 20 mg PO HS Qty: 30 RF: 0 Triamcinolone Acet 0.1% (Aristocort 0.1%) cream 1 applic EXT BID Qty: 1 RF: 0 potassium chloride 10 mEq tablet extended release 10 meq PO DAILY RF: 0 albuterol sulfate 90 mcg/actuation HFA aerosol inhaler 2 puff INHALATION Q4H PRN (Reason: Shortness Of Breath Or Wheezing) RF: 0 potassium, sodium phosphates [Phos-NaK] 280-160-250 mg Powder In Packet 1 packet PO DAILY RF: 0 Colace 100 mg 100 mg PO BID RF: 0 Lasix 20 mg 20 mg PO DAILY RF: 0 melatonin 3 mg 3 mg PO HS RF: 0 omeprazole 20 mg 20 mg PO DAILY RF: 0 ferrous sulfate 5 ml 5 ml PO BID RF: 0 Discharge Orders: Discharge Order (Routine); Ordered 07/11/19 Ordered By: Wilton Humphrey Admission Data Admit Date/Time: 07/08/19 22:27 Attending Provider: Wilton Humphrey Admit Provider: Jose Elias Oquendo Primary Care Provider: David Anand Other Providers: Steven Bhardwaj ; Mariela Cordero ; Jatin Borjas ; Jorge Kauffman ; Car Florez ; Byron Mir ; Luma Krueger ; Jose Winter ; Eloina Blum ; Raj Monge Jr ; Helio Bhagat ; Leia Cade ; Harry Acevedo ; [facility]
== END 2019-07-11 16:15 | disposition home health service (06) | DRG 389 ==
LOC: 3N 22:27